=== PATIENT | male | born 1980 | race Caucasian/White ===

== ENCOUNTER 2021-04-26 09:36 | Emergency (ER) | payer MEDICAID, OTHER ==
[~2021-04-26] VITALS: Ht 175.3 cm; Wt 86.4 kg
[~2021-04-26 09:36] MED LIST: LIDOcaine 1% W/epiNEPHrine 1:100,000 20ml vial ONE
[2021-04-26 10:00] VITALS: BP 133/91
[2021-04-26] MEDS ORDERED: bacitracin 15gm ointment TP ONE (12:10)
== END 2021-04-26 12:27 | disposition home or self-care (01) ==
LOC: ER 11:32
DX: M67.441 Ganglion, right hand (principal)
CPT/HCPCS: 20612; 99283

== ENCOUNTER 2021-08-23 09:00 | Emergency (ER) | payer MEDICAID ==
[~2021-08-23] VITALS: Ht 175.3 cm; Wt 84.1 kg
[2021-08-23 09:05] VITALS: BP 129/85
== END 2021-08-23 14:50 | disposition left against medical advice (07) ==
LOC: ER 09:00
DX: L08.9 Local infection of the skin and subcutaneous tissue, unspecified (principal); Z53.21 Procedure and treatment not carried out due to patient leaving prior to being seen by health care provider

== ENCOUNTER 2022-08-23 15:45 | Emergency (ER) | payer MEDICAID | END 2022-08-23 18:35 | disposition left against medical advice (07) | LOC: ER 15:46 | DX: H57.89 Other specified disorders of eye and adnexa (principal); Z53.21 Procedure and treatment not carried out due to patient leaving prior to being seen by health care provider ==

== ENCOUNTER 2025-08-20 18:30 | Emergency (ER) | payer MEDICAID ==
[~2025-08-20] VITALS: Ht 175.3 cm; Wt 84.0 kg
[2025-08-20 18:35] VITALS: BP 174/90; PULSE 109; RESP 20; O2SAT 99
--- NOTE | 2025-08-20 21:41 | Physician Documentation ---
History of Present Illness ~ Chief Complaint: Allergic Reaction Stated Complaint: ALLERGIC REACTION Time Seen by MD: 20:53 HPI 45-year-old male presents to the ED with a complaint of an acute onset rash after taking one dose of an unknown oral antibiotic. Patient states he took the unknown antibiotic for a tooth ache. States he needs to have a tooth removed. He denies testing himself or fever but states he felt fevers this morning. He says that the rash started on his hand and spread to his torso legs perineal area in his mouth he is that the rash is painful and itchy state that throughout the day the rash has gotten worse. Reports that the blister-like lesions turned purple on his bilateral hands. He has any shortness a breath or difficulty swallowing states he has developed blisters in the roof of his mouth which are also painful Day of Onset: Aug 20, 2025 Medication Reconciliation Allergies: Coded Allergies: No Known Allergies (Unverified , 04/26/21) Physical Exam Vital Signs: Temperature: 98.0, Source: Oral, Heart Rate: 109, Respiratory Rate: 20, BP: 174/90, Pulse Oximetry: 99, Weight: 84.000 Oxygen Flow Rate: 0 Physical Exam General: Alert, no apparent distress. HEENT: PERRL, EOMI, no injection, moist mucous membranes. small blisteder lesions in the roof of the patient's mouth Respiratory: Lungs clear, no respiratory distress. back: urticarial rash on torso and legs. Cardiovascular: Regular rate and rhythm, no murmurs. Gastrointestinal: Soft, nontender, nondistended. Bowels sounds present. Extremities: Normal range of motion, your of both hands have purplish regions on the palm Neurologic: Oriented x4. Psychiatric: Normal mood and affect. Skin: Normal color, warm and dry. No edema, no ecchymosis. Progress Results/Orders Results/Orders Orders - ULYSSES ESPOSITO [employer] Urinalysis, Cult If Indicated (08/20/25 21:20) Completed Orders - ULYSSES ESPOSITO [employer] Cbc/Diff (08/20/25 21:20) BMP (08/20/25 21:20) Lipase (08/20/25 21:20) CMP (08/20/25 21:20) ESR (08/20/25 21:20) C-Reactive Protein (08/20/25 21:20) Methylprednisolone Sod Succ (Solumedrol (08/20/25 21:25) Diphenhydramine Inj (Benadryl Inj.) (08/20/25 21:25) Famotidine/Pf Iv Inj (Pepcid Iv Inj) (08/20/25 21:25) Normal Saline 1000ml (0.9% Sodium Chlori (08/20/25 21:25) Medications Received in ER Medications (Trade) Dose Ordered Sig/Jeff Route PRN Reason Start Time Stop Time Status Last Admin Dose Admin (SoluMEDROL 125mg inj) 125 mg ONCE ONCE IV 08/20/25 21:25 08/20/25 21:26 DC 08/20/25 22:02 125 MG (Benadryl inj.) 50 mg ONCE ONCE IV 08/20/25 21:25 08/20/25 21:26 DC 08/20/25 22:02 50 MG (Pepcid IV inj) 20 mg ONCE ONCE IV 08/20/25 21:25 08/20/25 21:26 DC 08/20/25 22:02 20 MG (0.9% sodium chloride (NS) 1000ml IV soln) 1,000 ml ONCE ONCE IVB 08/20/25 21:25 08/20/25 21:26 DC 08/20/25 22:02 1,000 ML Vital Signs 08/20/25 18:35 Temp 98.0 Pulse 109 Resp 20 B/P (MAP) 174/90 Pulse Ox 99 O2 Flow Rate 0 Laboratory Tests Test 08/20/25 21:38 White Blood Count 5.2 Red Blood Count 5.37 Hemoglobin 16.1 Hematocrit 46.4 Mean Corpuscular Volume 86.5 Mean Corpuscular Hemoglobin 30.1 Mean Corpuscular Hemoglobin Concent 34.8 Red Cell Distribution Width 13.6 Platelet Count 225 Mean Platelet Volume 7.1 L Neutrophils (%) (Auto) 58.9 Lymphocytes (%) (Auto) 30.7 Monocytes (%) (Auto) 3.2 Eosinophils (%) (Auto) 6.7 H Basophils (%) (Auto) 0.5 Neutrophils # (Auto) 3.0 Lymphocytes # (Auto) 1.6 Monocytes # (Auto) 0.2 Eosinophils # (Auto) 0.3 Basophils # (Auto) 0.0 CBC Comment Erythrocyte Sedimentation Rate 6 Sodium Level 138 Potassium Level 3.5 Chloride Level 103 Carbon Dioxide Level 28.8 Anion Gap 6 L Blood Urea Nitrogen 10 Creatinine 1.38 H Estimated GFR/1.73 m2 56 BUN/Creatinine Ratio 7.2 L Glucose Level 156 H Calcium Level 8.7 Total Bilirubin 0.8 Aspartate Amino Transf (AST/SGOT) 23 Alanine Aminotransferase (ALT/SGPT) 29 Alkaline Phosphatase 104 C-Reactive Protein 2.93 H Total Protein 8.1 Albumin 4.2 Globulin 3.9 Albumin/Globulin Ratio 1.1 Lipase 21 Chemistry Comments Medical Decision Making Additional information obtaine: old records Findings This patient does not present clinically ill at this time. He does have an elevated C-reactive protein and he does have some clinical indications for developing Azam Nithin syndrome. Can not rule it out completely at this time. Gave him steroids fluids and H1 H2 blockers which did help his symptoms somewhat he is still complains of pain in his hands. He does not have a fever he does not have a an elevated white count. He has stopped taking the reported antibiotic. Spoke at length with the patient about Azam Nithin syndrome and what the symptoms look like. I explained that if he gets worse he needs to come back immediately. I am going to start him on oral steroids for the outpatient setting with very close return precautions. Considering the severity of Azam Nithin syndrome I was emphatic in my instructions. Showed pictures to the patient and the patient's family member to show them what to look for if his symptoms worsen verbally agreed to return if they do Differential Dx:Considerations: Include: Anaphylaxis, Angioedema, Bronchospasm, Contact dermatitis, Drug reaction, Hypotension, Latex allergy, Renal failure, Respiratory failure, Shock, Urticaria, Other Departure Disposition: 01 HOME / SELF CARE / HOMELESS Impression: Primary Impression: Acute allergic reaction Condition: Stable Discharge Instructions: Rash, Adult Additional Instructions: Discussed please return to the ED if your symptoms worsen I a developing blisters on your lips developing burn like lesion or any worsening severity. Please take the steroids as prescribed Referrals: NO PRIMARY CARE PROVIDER (PCP) Prescriptions Prednisone (Prednisone) 10 Mg Tablet 1 TAB PO BID for 5 Days, #10 TAB Prov: ULYSSES ESPOSITO NP 08/20/25 Education Educated: Patient Educated regarding: diagnosis Signature Scribe Signature: f Attestation: Scribed for Ulysses Esposito [employer] Control Inspector by Ulysses Parra NP . 08/20/25 22:56 ULYSSES ESPOSITO NP Aug 20, 2025 21:40
[2025-08-20 21:55] LABS: MEAN PLATELET VOLUME 7.1 FL (7.4-10.4); RED CELL DISTRIBUTION WIDTH 13.6 % (11.5-14.5)
[2025-08-20] MEDS: famotidine/PF 10 mg/ml inj IV ONE (22:02)
[2025-08-20] MEDS: normal saline 1000ML IV soln IVB ONE (22:02)
[2025-08-20 22:11] LABS: CREATININE 1.38 MG/DL (0.60-1.10); TOTAL CARBON DIOXIDE 28.8 MMOL/L (24-32); eCRCL 68 ML/MIN; eGFR 56 ML/MIN
[2025-08-20] MEDS ORDERED: PRED10TA23 PO (22:57)
[2025-08-20 23:15] VITALS: TEMP 98
== END 2025-08-20 23:58 | disposition home or self-care (01) ==
LOC: ER 18:30
DX: T78.49XA Other allergy, initial encounter (principal); X58.XXXA Exposure to other specified factors, initial encounter
CPT/HCPCS: 36415; 80053; 83690; 85025; 85651; 86140; 96361; 96374; 96375; 99284; J1200; J2919; J3490; J7030